=== PATIENT | male | born 1990 | race Two or more races ===

== ENCOUNTER 2017-01-17 21:41 | Emergency (ER) | payer MEDICAID ==
[~2017-01-17] VITALS: Ht 154.9 cm; Wt 63.5 kg
[2017-01-17 22:05] VITALS: BP 138/69
[2017-01-17] MEDS ORDERED: IBUPROFEN 600 MG TABLET PO ONE ×2 (23:00→23:09)
[2017-01-17] MEDS ORDERED: TDAP [DIPH/PERTUSSIS/TET] 0.5 ML VIAL IM ONE ×2 (23:00→23:09)
== END 2017-01-17 23:37 | disposition home or self-care (01) ==
LOC: ER 21:44
DX: S91.201A Unspecified open wound of right great toe with damage to nail, initial encounter (principal); S90.111A Contusion of right great toe without damage to nail, initial encounter; W21.02XA Struck by soccer ball, initial encounter; Y93.66 Activity, soccer; Y92.89 Other specified places as the place of occurrence of the external cause; Y99.9 Unspecified external cause status
CPT/HCPCS: 73660; 90471; 90715; 99284; A4606; Z7610

== ENCOUNTER 2019-10-27 15:31 | Emergency (ER) | payer SELFPAY ==
[~2019-10-27] VITALS: Ht 157.5 cm; Wt 70.3 kg
[2019-10-27 16:10] LABS: APPEARANCE,URINE CLOUDY (CLEAR); BILIRUBIN,URINE NEGATIVE (NEGATIVE); BLOOD, URINE NEGATIVE Ery/uL (NEGATIVE); COLOR,URINE YELLOW (YELLOW); KETONES,URINE NEGATIVE (NEGATIVE); LEUKOCYTE ESTERASE ,URINE NEGATIVE (NEGATIVE); NITRITE, URINE NEGATIVE (NEGATIVE); PROTEIN,URINE NEGATIVE (NEGATIVE); UGLUCOSE NEGATIVE (NEGATIVE); UROBILINOGEN,URINE 0.2 EU/dL (0.2)
[2019-10-27 16:19] LABS: BACTERIA,URINE None seen /HPF (None Seen); RBC,URINE 0-2 /HPF (0-2); SQUAMOUS EPITHELIAL CELL,UR 0-2 /HPF (None Seen); URINE AMORPHOUS PHOSPHATES Many /HPF (None Seen); WBC,URINE 0-2 /HPF (0-3)
[2019-10-27] MEDS ORDERED: FLUCONAZOLE (100 MG) 100 MG TABLET PO ONE (16:30)
[2019-10-27] MEDS ORDERED: FLUCONAZOLE (100 MG) 100 MG TABLET ONE (16:33)
[2019-10-27 16:39] VITALS: BP 130/81
--- NOTE | 2019-10-27 16:39 | NUR ---
benjamin, c/o dysuria x 2 weeks, burning sensation, and also during sex. will continue to monitor accordingly.
--- NOTE | 2019-10-27 16:39 | NUR ---
Patient discharged to home in stable condition. Written and verbal after care instructions given. Patient verbalizes understanding of instruction.
== END 2019-10-27 16:39 | disposition home or self-care (01) ==
LOC: ER 15:38
DX: N48.1 Balanitis (principal)
CPT/HCPCS: 81000-TC; 87086-TC

== ENCOUNTER 2021-11-02 20:10 | Emergency (ER) | payer SELFPAY ==
[~2021-11-02] VITALS: Ht 157.5 cm; Wt 72.6 kg
[2021-11-02 21:20] VITALS: BP 134/81
--- NOTE | 2021-11-02 21:35 | NUR ---
MEME VALVERDE AT PT'S BEDSIDE
[2021-11-02] MEDS ORDERED: KETOROLAC TROMETHAMINE INJ 30 MG/ML VIAL ONE (21:48)
[2021-11-02] MEDS ORDERED: KETOROLAC TROMETHAMINE INJ 60 MG/2 ML VIAL IM ONE (22:00)
[2021-11-02] MEDS ORDERED: NAPR500T6 PO (22:17)
--- NOTE | 2021-11-02 23:30 | NUR ---
Patient discharged to home in stable condition. Written and verbal after care instructions given. Patient verbalizes understanding of instruction.
== END 2021-11-02 23:30 | disposition home or self-care (01) ==
LOC: ER 20:10
DX: S80.02XA Contusion of left knee, initial encounter (principal); W11.XXXA Fall on and from ladder, initial encounter; Y93.89 Activity, other specified; Y92.89 Other specified places as the place of occurrence of the external cause; Y99.8 Other external cause status
CPT/HCPCS: 29505; 73564; 96372; 99283; J1885

== ENCOUNTER 2023-01-05 23:44 | Emergency (ER) | payer MEDICAID ==
[~2023-01-05] VITALS: Ht 157.5 cm; Wt 72.6 kg
[~2023-01-05 23:44] MED LIST: NAPR500T6 PO
[2023-01-06] MEDS ORDERED: FLUORESCEIN SODIUM OPHTH 1 EA STRIP ONE (01:03)
[2023-01-06] MEDS ORDERED: FLUORESCEIN SODIUM OPHTH 1 EA STRIP OP ONE (01:30)
[2023-01-06] MEDS ORDERED: TETRACAINE HCL 0.5% OPHTALMIC 15 ML BOTTLE OP ONE (01:30)
[2023-01-06] MEDS ORDERED: CIPR2.5D14 LEFTEYE (02:15)
[2023-01-06 02:24] VITALS: BP 124/82
== END 2023-01-06 02:25 | disposition home or self-care (01) ==
LOC: ER 23:46
DX: S05.02XA Injury of conjunctiva and corneal abrasion without foreign body, left eye, initial encounter (principal); Z77.098 Contact with and (suspected) exposure to other hazardous, chiefly nonmedicinal, chemicals; X58.XXXA Exposure to other specified factors, initial encounter; Y93.89 Activity, other specified; Y92.89 Other specified places as the place of occurrence of the external cause; Y99.8 Other external cause status
CPT/HCPCS: 99284; J7030

== ENCOUNTER 2024-02-07 17:21 | Emergency (ER) | payer MEDICAID ==
[~2024-02-07] VITALS: Ht 162.6 cm; Wt 78.0 kg
[~2024-02-07 17:21] MED LIST changes: +CIPR2.5D14 LEFTEYE
[2024-02-07 18:22] LABS: APPEARANCE,URINE SLIGHTLY CLOUDY (CLEAR); BILIRUBIN,URINE NEGATIVE (NEGATIVE); BLOOD, URINE NEGATIVE Ery/uL (NEGATIVE); COLOR,URINE YELLOW (YELLOW); KETONES,URINE TRACE mg/dL (NEGATIVE); LEUKOCYTE ESTERASE ,URINE NEGATIVE (NEGATIVE); NITRITE, URINE NEGATIVE (NEGATIVE); PH,URINE 5.5 (5.0-8.0); PROTEIN,URINE NEGATIVE (NEGATIVE); UGLUCOSE NEGATIVE (NEGATIVE); UROBILINOGEN,URINE 0.2 EU/dL (0.2)
[2024-02-07] MEDS ORDERED: CEFTRIAXONE 1 G VIAL ONE (18:27)
[2024-02-07] MEDS ORDERED: AZITHROMYCIN 250 MG TABLET ONE (18:28)
[2024-02-07] MEDS: CEFTRIAXONE 1 G VIAL IM ONE (18:30)
[2024-02-07] MEDS: AZITHROMYCIN 250 MG TABLET PO ONE (18:31)
[2024-02-07 18:34] LABS: RBC,URINE 0-2 /HPF (0-2)
[2024-02-07 18:35] LABS: ADD URINE CULTURE NO; BACTERIA,URINE Few /HPF (None Seen); SQUAMOUS EPITHELIAL CELL,UR Few /HPF (None Seen); URINE AMORPHOUS URATE Few /HPF (None Seen); WBC,URINE NONE SEEN /HPF (0-3)
[2024-02-07 19:02] VITALS: BP 122/72; TEMP 98.2; O2SAT 98
[2024-02-08 15:41] LABS: HIV-1 p24 ANTIGEN NON REACTIVE (NONREACTIVE); HIV-1/2 ANTIBODY NON REACTIVE (NONREACTIVE)
[2024-02-09 06:10] LABS: RAPID PLASMA REAGIN QUAL. Non Reactive (Non Reactive)
[2024-02-09 18:11] LABS: CHLAMYDIA TRACHOMATIS NAA Negative (Negative); NEISSERIA GONORRHOEAE NAA Negative (Negative)
== END 2024-02-07 19:02 | disposition home or self-care (01) ==
LOC: ER 17:29
DX: N48.89 Other specified disorders of penis (principal); Z20.2 Contact with and (suspected) exposure to infections with a predominantly sexual mode of transmission
CPT/HCPCS: 99283; 86592; 86593; 96372; 81001; 36415; 87806; 87491; 87591; J0696

== ENCOUNTER 2024-11-26 21:19 | Emergency (ER) | payer MEDICAID, OTHER ==
[~2024-11-26] VITALS: Ht 157.5 cm; Wt 70.3 kg
[2024-11-26] MEDS ORDERED: NAPROXEN 250 MG TABLET ONE (22:51)
[2024-11-26] MEDS: NAPROXEN 250 MG TABLET PO ONE (22:53)
[2024-11-26 22:59] VITALS: BP 148/74; TEMP 98.1; O2SAT 99
[2024-11-27] MEDS ORDERED: ACET-2605 PO (01:09)
[2024-11-27] MEDS ORDERED: NAPR-1009 PO (01:09)
== END 2024-11-27 02:48 | disposition home or self-care (01) ==
LOC: ER 21:23
DX: M25.512 Pain in left shoulder (principal); W18.39XA Other fall on same level, initial encounter; Y93.66 Activity, soccer; Y92.322 Soccer field as the place of occurrence of the external cause; Y99.8 Other external cause status
CPT/HCPCS: 73030-TC